=== PATIENT | female | born 1970 | race Caucasian/White ===

== ENCOUNTER → 2016-10-11 | Outpatient (CLI) | payer OTHER | END | disposition home or self-care (01) | LOC: PETCFH 08:59 | PROVIDERS: ATTEND Internal Medicine Gastroenterology | DX: R11.0 Nausea (principal) | CPT/HCPCS: 78264; A9541 ==

== ENCOUNTER → 2017-04-11 | Outpatient (CLI) | payer OTHER | END | disposition home or self-care (01) | LOC: CFH 10:24 | PROVIDERS: ATTEND Family Medicine | DX: R10.11 Right upper quadrant pain (principal) | CPT/HCPCS: 76700 ==

== ENCOUNTER → 2017-05-13 | Outpatient (CLI) | payer OTHER | END | disposition home or self-care (01) | LOC: PETCFH 08:14 | PROVIDERS: ATTEND Family Medicine | DX: R10.11 Right upper quadrant pain (principal) | CPT/HCPCS: 78227; A9537 ==

== ENCOUNTER 2017-05-31 11:49 | Day surgery (SDC) | payer OTHER ==
[2017-05-29 12:39] LABS: ALANINE AMINOTRANSFERASE 35 U/L (12-78); ALBUMIN 3.9 g/dL (3.4-5.0); ANION GAP 9 mmol/L (5-15); CALCIUM 9.3 mg/dL (8.5-10.1); CHLORIDE 103 mmol/L (98-107); CREATININE 0.84 mg/dL (0.55-1.02)
[2017-05-29 12:41] LABS: ALKALINE PHOSPHATASE 83 U/L (45-117); BILIRUBIN,TOTAL 0.4 mg/dL (0.2-1.0); TOTAL PROTEIN 7.7 g/dL (6.4-8.2)
[~2017-05-31] VITALS: Ht 162.6 cm; Wt 90.8 kg
[~2017-05-31 11:49] MED LIST: CANA300T PO; CHOL5000 PO; ESTR-21 TD; EXEN2VIA SC; LAMO50TA3 PO; LISI1TAB7 PO; LORA10CA PO; METF500T27 PO; MULT-658 PO; PANT40TA5 PO; SIMV20TA3 PO; TIZA4CAP PO; ZOLP5TAB6 PO; trintellix PO
[2017-05-31] MEDS ORDERED: LACTATED RINGERS 1,000 ML IV SCH (12:36)
[2017-05-31] MEDS ORDERED: MIDAZOLAM 1 MG/ML, 2ML ONE (12:59)
[2017-05-31] MEDS ORDERED: FENTANYL PF 250 MCG/5ML ONE (13:00)
[2017-05-31 13:02] VITALS: BP 111/76
[2017-05-31] MEDS ORDERED: PROPOFOL 10 MG/ML, 20ML ONE (13:05)
[2017-05-31] MEDS ORDERED: ROCURONIUM 10 MG/ML,10ML ONE (13:06)
[2017-05-31] MEDS ORDERED: NEOSTIGMINE 1 MG/ML, 10ML ONE (13:09)
[2017-05-31] MEDS ORDERED: GLYCOPYRROLATE 0.4 MG/2 ML, 2ML ONE (13:09)
[2017-05-31] MEDS ORDERED: ONDANSETRON 2MG/ML, 2ML ONE (13:10)
[2017-05-31] MEDS ORDERED: DEXAMETHASONE 4 MG/ML, 1ML ONE ×2 (13:10)
[2017-05-31] MEDS ORDERED: BUPIVACAINE/PF 0.5% ONE (13:54)
[2017-05-31] MEDS ORDERED: EPINEPHRINE 1 MG/ML, 1ML ONE (13:54)
[2017-05-31] MEDS ORDERED: OXYcodone 5 MG/5 ML ORAL.SOL UDC PO PRN (14:30)
[2017-05-31] MEDS ORDERED: PROMETHAZINE 25 MG/ML, 1ML IV PRN (14:30)
[2017-05-31] MEDS ORDERED: MEPERIDINE/PF 25MG/0.5ML IVPush PRN (14:30)
[2017-05-31] MEDS ORDERED: ONDANSETRON 2MG/ML, 2ML IVPush PRN (14:30)
[2017-05-31] MEDS ORDERED: hydrALAzine 20 MG/ML, 1ML IV PRN (14:30)
[2017-05-31] MEDS ORDERED: ACETAMINOPHEN 325 MG TABLET PO PRN (14:30)
[2017-05-31] MEDS ORDERED: LABETALOL 5MG/ML, 20ML IV PRN (14:30)
[2017-05-31] MEDS ORDERED: OXYcodone 5 MG/5 ML ORAL.SOL UDC ONE (15:23)
[2017-05-31] MEDS ORDERED: FENTANYL PF 100 MCG/2ML ONE (15:23)
[2017-05-31] MEDS ORDERED: HYDROmorphone 2 MG/ML, 1ML ONE (15:23)
[2017-05-31] MEDS: FENTANYL PF 100 MCG/2ML IV PRN ×2 (15:25→15:35)
[2017-05-31] MEDS: HYDROmorphone 1 MG/ML, 1ML IV PRN ×3 (15:30→16:00)
== END 2017-05-31 18:00 | disposition home or self-care (01) ==
LOC: OUT 11:49
PROVIDERS: ATTEND Surgery
DX: K80.10 Calculus of gallbladder with chronic cholecystitis without obstruction (principal); E11.9 Type 2 diabetes mellitus without complications; K21.9 Gastro-esophageal reflux disease without esophagitis; E78.5 Hyperlipidemia, unspecified; I10 Essential (primary) hypertension; E66.9 Obesity, unspecified; Z68.34 Body mass index [BMI] 34.0-34.9, adult; Z87.891 Personal history of nicotine dependence; Z88.5 Allergy status to narcotic agent; Z88.8 Allergy status to other drugs, medicaments and biological substances
CPT/HCPCS: 36415; 47562; 80053; 82962; 88304; 93005; J0171; J1170; J2250; J2405; J2704; J2710; J3010; J3490; J7120; J1100

== ENCOUNTER → 2018-02-26 | Outpatient (CLI) | payer OTHER | END | disposition home or self-care (01) | LOC: CFH 12:07 | PROVIDERS: ATTEND Family Medicine | DX: R92.2 Inconclusive mammogram (principal) | CPT/HCPCS: 77065 ==